=== PATIENT | male | born 1950 | race Caucasian/White ===

== ENCOUNTER 2024-01-12 09:30 | Outpatient (CLI) | payer OTHER | END 2024-01-12 09:31 | disposition home or self-care (01) | LOC: ULT 09:30 | PROVIDERS: ATTEND Family Medicine | DX: R35.0 Frequency of micturition (principal) | CPT/HCPCS: 76770 ==

== ENCOUNTER 2025-07-17 08:31 | Outpatient (CLI) | payer OTHER ==
[2025-07-17 09:02] LABS: Estimated GFR - POC 89.0
[2025-07-17] MEDS ORDERED: Iopamidol 370 76% 100 ML VIAL ONE (10:28)
== END 2025-07-17 08:32 | disposition home or self-care (01) ==
LOC: CT 08:31
PROVIDERS: ATTEND Family Medicine
DX: K40.90 Unilateral inguinal hernia, without obstruction or gangrene, not specified as recurrent (principal); I71.43 Infrarenal abdominal aortic aneurysm, without rupture; R91.1 Solitary pulmonary nodule; I70.90 Unspecified atherosclerosis
CPT/HCPCS: 36415; 74177; 82565; Q9967